=== PATIENT | female | born 1985 ===

== ENCOUNTER 2017-08-23 04:21 | Inpatient (IN) | payer OTHER ==
[~2017-08-23] VITALS: Ht 160 cm; Wt 68.9 kg
[2017-08-23] MEDS ORDERED: PRENATAL 19 TA1 EAC1 PO (09:31)
== END 2017-08-25 12:47 | disposition home or self-care (01) | DRG 775 ==
LOC: LDR 04:21 → OB/GYN 15:50
PROC: 10E0XZZ Delivery of Products of Conception, External Approach (ICD-10-PCS; principal; 2017-08-23)
PROC: 0KQM0ZZ Repair Perineum Muscle, Open Approach (ICD-10-PCS; 2017-08-23)
PROC: 4A1HXCZ Monitoring of Products of Conception, Cardiac Rate, External Approach (ICD-10-PCS; 2017-08-23)
PROC: 4A033R1 Measurement of Arterial Saturation, Peripheral, Percutaneous Approach (ICD-10-PCS; 2017-08-23)
PROC: 10907ZC Drainage of Amniotic Fluid, Therapeutic from Products of Conception, Via Natural or Artificial Opening (ICD-10-PCS; 2017-08-23)
DX: O60.14X0 Preterm labor third trimester with preterm delivery third trimester, not applicable or unspecified (principal); O70.1 Second degree perineal laceration during delivery; Z37.0 Single live birth; Z3A.36 36 weeks gestation of pregnancy